=== PATIENT | male | born 1970 | race African-American/Black ===

== ENCOUNTER 2025-10-11 16:34 | Emergency (ER) | payer OTHER, SELFPAY ==
[2025-10-11 16:39] VITALS: BP 133/84
[2025-10-11 17:26] LABS: ALT (SGPT) 27 U/L (0-50); AST (SGOT) 33 U/L (17-59); Albumin 4.9 g/dl (3.5-5.0); Alkaline Phosphatase 67 U/L (38-126); Blood Urea Nitrogen 18 mg/dl (9-20); Calcium 9.8 mg/dl (8.4-10.2); Carbon Dioxide 30 mmol/L (22-30); Chloride 101 mmol/L (98-107); Glucose 94 mg/dl (70-99); Lipase 116 U/L (23-300); Potassium 4.4 mmol/L (3.5-5.1); Sodium 136 mmol/L (135-145); Total Protein 7.8 g/dl (6.3-8.2); eGFR > 60.00
[2025-10-11 17:32] LABS: Hematocrit 47.2 % (39.0-52.0); Hemoglobin 16.1 g/dL (13.0-18.0); Mean Corp Hgb Conc. 34.1 g/dL (33.0-37.0); Mean Corpuscular Volume 82.4 fL (80.0-94.0); Platelet Count 193 10^3/uL (130-400); Red Cell Dist. Width 14.6 % (11.5-14.5)
[2025-10-11 18:32] LABS: Nucleated Red Blood Cells % 0 % (-)
[2025-10-11] MEDS: OMNIPAQUE 50 ML PO (19:38)
[2025-10-11] MEDS: NSS 1000 IV (19:42)
--- NOTE | 2025-10-11 19:51 | ED.GENMED ---
History of Present Illness
General
Chief Complaint: Abdominal Pain
Source: patient and spouse
Exam Limitations: none
Time Seen by Provider: 10/11/25 19:29
Nursing documentation reviewed up to this point in time: agreed with
History of Present Illness
History of Present Illness:
55-year-old male with past medical history of hyperlipidemia, colorectal cancer status post resection who presents to the emergency department for evaluation of abdominal discomfort and constipation. Patient reports onset of symptoms a week ago and
have been constant since that time�she reports last Saturday he had some loose stools after returning from vacation and since then he has not passed any stool for the past 7 days. He is still passing small amount of gas. He says he has had some mild
abdominal discomfort developing over that period of time and feels mildly bloated. He denies any nausea or vomiting says that his appetite is good. No fever or chills. Denies any other acute complaints. He does have a history of colon cancer
status post colon resection; he also had postoperative complication of multiple small bowel obstructions requiring a partial small bowel resection as well�the surgeries were all in the range and reports that he has not had any issues since.
Past History
Past History
ED Past Medical History: Cancer (Rectal) and Other ( SBO); Negative Asthma, HTN, Hypercholesterolemia or NIDDM
ED Past Surgical History: Bowel resection
Social History
Tobacco: Non-smoker
Alcohol: None
Drug: None
Personal:
Living: with family
Employment: Employed
Review of Systems
Review of Systems
All Other Systems: ROS reviewed and negative except as documented in HPI and ROS
Constitutional: Denies fever
Respiratory: Denies trouble breathing
Cardiac: Denies chest pain
ABD/GI: Reports abdominal pain and constipated; Denies nausea, vomiting, diarrhea or anorexia
: Denies dysuria or flank pain
Musculoskeletal: Denies neck pain or back pain
Neurological: Denies dizzy or headache
Phy Exam
Physical Exam
Physical Exam:
General: Awake, alert, oriented x3; no acute distress
Head: Normocephalic, atraumatic
Eyes: Conjunctiva normal, sclera anicteric
Throat: Airway intact, handling secretions
Neck: Trachea midline, supple without meningismus
Lungs: Breathing comfortably without evidence of respiratory distress
Heart: Regular rate
Abd: Soft, mildly distended, surgical scars noted; mild diffuse tenderness no peritoneal signs
Neuro: Grossly intact
Skin: Warm and dry
Extremities: No edema in extremities, warm and well-perfused
Scores
Heart Failure Risk
Heart Failure Risk Score: Not Applicable
Heart Score for Chest Pain Patients
STEMI patient?: Not applicable
Withdrawal Assessment of Alcohol
Withdrawal Assessment Completed?: Not applicable
Course
Orders/Labs/Results
Orders:
Orders
10/11/25 16:55
Complete Blood Count/With Diff Urgent
Comprehensive Metabolic Panel Urgent
Lactic Acid Urgent
Lipase Urgent
10/11/25 19:32
CT Abd/pel W Iv And Oral Contr Urgent
Comment:
Reason For Exam: abd pain, distention, constipation; h/o colon ca
0.9% Sodium Chloride 1000 ml [Nss] 1,000 ml IV BOLUS
Iohexol [Omnipaque] See Protocol PO NOW STA
10/11/25 22:41
Enema- Treatment ONCE
Type: Milk of Molasses
Abnormal Lab Results
10/11/25
16:55
RDW 14.6 H %
(11.5-14.5)
10/11/25 16:55
10/11/25 16:55
Vital Signs
Initial and Last Documented VS:
Initial Vital Signs
Temp Pulse Resp BP Pulse Ox
36.8 C 65 16 133/84 100
10/11/25 16:39 10/11/25 16:39 10/11/25 16:39 10/11/25 16:39 10/11/25 16:39
Last Documented Vital Signs
Temp Pulse Resp BP Pulse Ox
36.8 C 65 16 133/84 100
10/11/25 16:39 10/11/25 16:39 10/11/25 16:39 10/11/25 16:39 10/11/25 19:55
MDM/Problems Addressed
Differential Diagnosis Includes:
Bowel obstruction, ileus, constipation, fecal impaction
MDM/Problems Addressed:
55-year-old male with history as noted significant for multiple prior abdominal surgeries and history of small bowel obstructions presents for evaluation of abdominal discomfort and constipation x 7 days. Vitals and exam are as above. Labs were
sent in triage including a CBC and a CMP which showed no clinically significant abnormalities. Will check CT abdomen pelvis with p.o. and IV contrast. Reassess at the above.
CT shows no signs to suggest bowel obstruction. He does have marked constipation on CT. Clinical reassessment patient says he has passed more gas here than he has been over the past week and he has no pain at present but still feels mildly
bloated. We spoke about options, we will plan to give an enema here and discharged with a bottle of magnesium citrate. He feels comfortable with this plan. All questions answered.
Chronic conditions affecting care:
Colorectal surgeries
*Radiology
Radiology exam reviewed: radiology read reviewed
*Pulse Oximetry
SaO2: 100
Oxygen Mode of Delivery: Room air
Patient hypoxic: no (100%)
*Critical Care Note
Total Time (30-74mins, 75-104mins- exclusive of procedures): Not Applicable
Data Reviewed
Source: patient, records and spouse
ED Attending Note
-
Portions of this chart may have been created with voice recognition software.� Occasional wrong word or��sound alike� substitutions may have occurred due to the inherent limitations of voice recognition software.
Discharge Plan
Departure
Patient with high blood pressure during this ER visit?: No
Discharge Problem:
Constipation
Instructions: Constipation in adults - ED (DC)
Prescriptions:
No Action
multivitamin [One Daily Essential] 1 EACH tablet
1 ea PO DAILY
tadalafil [Cialis] 5 MG tablet
5 mg PO DAILY
naproxen 500 MG tablet
500 mg PO BID Qty: 10 0RF
Rx Instructions:
Take with food.
Referrals:
Valentín Osei MD [Family Provider, Internal Medicine] - Follow up in 5-7 days
Activity Restrictions/Additional Instructions:
Thank you for visiting the Emergency Department at [facility].
1. Please schedule a follow up appointment as directed. Call first thing tomorrow morning to make an appointment.
2. If indicated, please take your medications as instructed and indicated on discharge paperwork.
3. If any of your symptoms do not improve, or persist, or become more severe within 6-12 hours, please return to the emergency department for further care.
4. Please return to the emergency department if you develop a headache, neck pain/stiffness, fever greater than 100.4F, chest pain, shortness of breath, persistent nausea, vomiting, slurred speech, difficulty walking, numbness/tingling, weakness,
signs of infection or any other symptoms that are worrisome to you.
Please call [phone] if you have any questions.
Interventions
Interventions:
*Risk Screen - Suicide Last Done: 10/11/25 16:36
*General Assessment Last Done: 10/11/25 19:46
*Neglect/Abuse Screening Last Done: 10/11/25 19:46
*ED COVID-19 Vaccine History Last Done: 10/11/25 19:46
*ED Influenza Vaccine History Last Done: 10/11/25 19:46
[facility] Fall Risk Assessment Tool Last Done: 10/11/25 16:35
[id number] Assessment Last Done: 10/11/25 20:04
Discharge Date and Time
Print Language: DIVEHI
[2025-10-11 23:30] VITALS: BP 140/88
[2025-10-12 00:30] VITALS: BP 140/88
== END 2025-10-12 00:31 | disposition home or self-care (01) ==
LOC: EMR 16:34
PROVIDERS: Emergency Medicine; EMERGENCY PHYSICIAN Emergency Medicine; FAMILY PHYSICIAN Internal Medicine
DX: K59.00 Constipation, unspecified (principal); E78.5 Hyperlipidemia, unspecified; Z85.048 Personal history of other malignant neoplasm of rectum, rectosigmoid junction, and anus; Z90.49 Acquired absence of other specified parts of digestive tract
CPT/HCPCS: 99284; 96360; 74177; 80053; 83605; 83690; 85025; Q9967